=== PATIENT | male | born 1955 | race Caucasian/White ===

== ENCOUNTER 2022-12-12 22:03 | Emergency (ER) | payer OTHER, SELFPAY ==
[2022-12-12 22:11] VITALS: BP 123/53
[2022-12-12] MEDS: MORPHINE SULFATE 4 MG IV (23:39)
[2022-12-12 23:42] VITALS: BP 106/60
--- NOTE | 2022-12-12 23:44 | ED.GENMED ---
History of Present Illness
General
Chief Complaint: Catheter/Tube Problem
Source: patient, records and family
Exam Limitations: none
Time Seen by Provider: 12/12/22 23:26
Nursing documentation reviewed up to this point in time: agreed with
Travel History
Have you had any contact with someone who has COVID-19?: No
Do you have any symptoms of coronavirus? Fever > 100 degrees, chills, cough, shortness of breath, sore throat, loss of taste or smell, muscle aches, or headache?: No
History of Present Illness
History of Present Illness:
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
pain at his penis, decreased urine output, no fevers
Past History
Past History
ED Past Medical History: Cancer (Metastatic colon cancer), GERD, Hypercholesterolemia and Other (Stage IV colon cancer with liver metastases. History of diverticulitis, history of carotid dissection about 5 years ago, thrombocytopenia); Negative
IDDM or NIDDM
ED Past Surgical History: Other (Pancreatic and colon surgery for metastatic colon cancer, ileostomy with reversal, Cyber knife to lung tumors, bilateral hip surgery, surgery for a huge abdominal hernia, throat surgery 10 years ago)
Patient has exhibited threatening behavior?: No
PSI?: No
Social History
Tobacco: Smoker
Alcohol: None
Drug: None
Personal:
Living: with family
Employment: Retired
Family History
Family History: Hypertension
Review of Systems
Review of Systems
Other source history: family
All Other Systems: Not applicable
Constitutional: Denies fever or fatigue
EENT: Reports no symptoms
Respiratory: Reports no symptoms
Cardiac: Reports no symptoms
: Reports difficulty voiding; Denies bleeding
Hematologic/Lymphatic: Reports no symptoms
Phy Exam
Physical Exam
Physical Exam:
Physical Exam
General: 67 male looks uncomfortable
Neck: No jaundice
Heart: s1/s2 regular rate and rhythm, no murmur. equal radial pulses.
Lungs: no acute respiratory distress.
Abdomen: Mild suprapubic tenderness, catheter in place
Neuro: alert and oriented. no focal neurological deficits
Skin: no rash
Psychiatric: well kept. interactive and cooperative
Extremities: no edema.
Course
Orders/Labs/Results
Orders:
Orders
12/12/22 23:37
Morphine Sulfate 4 mg IV NOW STA
Vital Signs
Initial and Last Documented VS:
Initial Vital Signs
Temp Pulse Resp BP Pulse Ox
97.5 F 103 17 123/53 96
12/12/22 22:11 12/12/22 22:11 12/12/22 22:11 12/12/22 22:11 12/12/22 22:11
Last Documented Vital Signs
Temp Pulse Resp BP Pulse Ox
97.5 F 94 18 121/63 96
12/12/22 22:11 12/13/22 00:11 12/13/22 00:11 12/13/22 01:00 12/13/22 01:01
MDM/Problems Addressed
Differential Diagnosis Includes:
Clot retention malfunctioning Phillips, meatal irritation
MDM/Problems Addressed:
Penile pain
Chronic conditions affecting care:
Prior urologic surgery
Acute Exacerbation and/or Progression of Chronic Illness:
Prior urologic surgery
*Pulse Oximetry
Patient hypoxic: no
*Critical Care Note
Total Time (30-74mins, 75-104mins- exclusive of procedures): Not Applicable
Patient Management
Social determinants of health affecting care: Living situation and Strong social support
Update Note
Update Note:
1215, a.m. patient feeling much better RN hand irrigated out of large clots urine is now yellow and clear patient much better will touch base with his urologist, will try to get him home
ED Attending Note
-
Portions of this chart may have been created with voice recognition software.� Occasional wrong word or��sound alike� substitutions may have occurred due to the inherent limitations of voice recognition software.
Discharge Plan
Departure
Patient Disposition: Home (Routine Discharge)
Date of Disposition: 12/13/22
Time of Disposition: 01:07
Patient with high blood pressure during this ER visit?: No
Condition: Good
Covid-19: Not Applicable
Discharge Problem:
Clot retention of urine
Instructions: How to Care for Your Phillips Catheter, Male
Prescriptions:
No Action
polyethylene glycol 3350 17 GRAMS powder in packet
17 grams PO HS
lidocaine 1 PATCH adhesive patch,medicated
1 patch topical DAILYPRN PRN (Reason: lower back pain)
Label Comments:
'stopped using a while ago'
multivitamin with folic acid [Tab-A-Venkata] 1 TABLET tablet
1 tab PO DAILY
omeprazole 40 MG capsule,delayed release(DR/EC)
40 mg PO QPM
Metamucil Fiber Singles 1 PACKET powder in packet
1 packet PO HS
acetaminophen [Tylenol Extra Strength] 500 MG tablet
1,000 mg PO Q6HPRN PRN (Reason: fever)
tamsulosin 0.4 mg Capsule
0.4 mg PO BID
ascorbic acid (vitamin C) [Vitamin C] 1,000 mg Tablet
1,000 mg PO .OTHER DAY
cholecalciferol (vitamin D3) [Vitamin D3] 125 mcg (5,000 unit) Tablet
125 mcg PO DAILY
zolpidem 10 mg tablet
10 mg PO HS
Label Comments:
07/06/2022: last filled 03/18/22, 90 tabs for 90 days from [facility]
diltiazem HCl [DILT-XR] 180 mg capsule,ext.rel 24h degradable
180 mg PO DAILY@1300
furosemide 40 mg Tablet
40 mg PO DAILY PRN (Reason: swelling)
potassium chloride 10 mEq Tablet Extended Release
10 meq PO DAILY PRN (Reason: with lasix)
zinc gluconate 30 mg Tablet
30 mg PO DAILY
acyclovir [Zovirax] 5 % Cream
1 applic TOPICAL DIRECTED PRN (Reason: rash)
glucosamine RUr-fgq-bvmlsglpvs 375-250-300 mg Tablet
1 tab PO BID
Probiotic 5 billion cell Capsule, Sprinkle
1 cap PO DAILY
Ponaris Solution
1 applic INTRANASAL BID
Delsym 30 mg/5 mL Liquid
10 PO
ciprofloxacin HCl [Cipro] 250 mg tablet
250 mg PO BID Qty: 2 0RF
Referrals:
UNKNOWN - PT NOT,INTERVIEWE [Unknown Provider] -
Activity Restrictions/Additional Instructions:
Follow-up with Dr. Stevens as scheduled
Interventions
Interventions:
*Risk Screen - Suicide Last Done: 12/12/22 22:11
*General Assessment Last Done: 12/12/22 22:11
*Neglect/Abuse Screening Last Done: 12/12/22 22:11
*ED COVID-19 Vaccine History Last Done: 12/12/22 22:11
HY-Jadjxn-Pskulgllgm Assessment Last Done: 12/13/22 00:07
ED-Male Genitourinary Assessment Last Done: 12/13/22 00:07
[2022-12-13] VITALS: BP 117/55
[2022-12-13 00:11] VITALS: BP 117/55
[2022-12-13 01:00] VITALS: BP 121/63
[2022-12-13 01:09] VITALS: BP 123/62
== END 2022-12-13 01:24 | disposition home or self-care (01) ==
LOC: EMR 22:03
PROVIDERS: EMERGENCY PHYSICIAN Emergency Medicine; FAMILY PHYSICIAN Family Medicine
DX: R33.8 Other retention of urine (principal); N48.89 Other specified disorders of penis
CPT/HCPCS: 51798; 96374; 99284